=== PATIENT | female | born 1975 | race Caucasian/White ===

== ENCOUNTER 2016-11-02 17:59 | Emergency (ER) | payer OTHER ==
[~2016-11-02] VITALS: Ht 175.3 cm; Wt 121.6 kg
[~2016-11-02 17:59] MED LIST: ADDERALL XR 3030 MG PO; ADDERALL30 MG PO; BACTRIM,SEPT1 TABLET PO; ELIQUIS5 MG PO; LISINOPRIL10 MG PO; LISINOPRIL20 MG PO; METHADONE1 MG/1 ML PO; NAPROSYN500 MG PO; NORCO 5/3251 TABLET PO; PERCOCET 5/31 TABLET PO; PRADAXA150 MG PO; ROXICODONE5 MG PO; SEROQUEL XR200 MG PO; SEROQUEL200 MG PO; XARELTO20 MG PO
[2016-11-02 18:50] LABS: HEMATOCRIT 46.3 % (36.0-46.0); MCH 30.3 PG (29.0-34.0); MCHC 32.2 G/DL (30.0-36.0); MCV 94.3 FL (83-99); MEAN PLAT.VOLUME 8.6 uM^3 (9.5-12.4); PLATELET COUNT 364 K/uL (156-360); RBC DIS.WIDTH-CV 18.4 % (11.8-14.6); RBC DIS.WIDTH-SD 62.8 % (39-53); RED BLOOD COUNT 4.91 M/uL (3.80-5.20); WHITE BLOOD COUNT 8.4 K/uL (4.1-10.2)
[2016-11-02 19:00] LABS: CHLORIDE 97 mEq/L (99-109); POTASSIUM 5.2 mEq/L (3.7-5.4); SODIUM 135 mEq/L (136-147)
[2016-11-02 19:02] LABS: GLUCOSE 99 mg/dL (70-99)
[2016-11-02 19:03] LABS: ANION GAP 9 MEQ/L (2-14)
[2016-11-02 19:04] LABS: TOTAL BILIRUBIN 0.7 mg/dL (0.0-1.0)
[2016-11-02 19:05] LABS: ALKALINE PHOSPHATASE 117 IU/L (3-129)
[2016-11-02 19:06] LABS: GFR ESTIMATE (CALCULATED) 48 mL/min/
[2016-11-02 19:07] LABS: UREA NITROGEN (BUN) 11 mg/dL (9-23)
[2016-11-02 19:14] LABS: QUANTITATIVE HCG < 4.0 MIU/ML
[2016-11-02 21:33] LABS: ADD MIUA? YES; BILIRUBIN NEGATIVE; BLOOD NEGATIVE; COLOR AMBER ((YELLOW)); GLUCOSE (STRIP) NEGATIVE; KETONES 5; LEUKOCYTES SMALL; NITRITE NEGATIVE; PROTEIN (STRIP) 30; SPECIFIC GRAVITY 1.021 (1.000-1.030)
[2016-11-02 21:45] LABS: BACTERIA RARE /HPF; EPITHELIAL CELLS 3+ /HPF; MUCUS TRACE /LPF; RED BLOOD CELLS 0-5 /HPF (0-5); UCUL ADDED? NO; WHITE BLOOD CELLS 0-5 /HPF (0-5)
[2016-11-02 21:46] LABS: CASTS NONE SEEN /LPF; CRYSTALS NONE SEEN
[2016-11-02 23:16] VITALS: BP 102/54
== END 2016-11-02 23:17 | disposition home or self-care (01) ==
LOC: EME 17:59
DX: K43.2 Incisional hernia without obstruction or gangrene (principal); K43.9 Ventral hernia without obstruction or gangrene; R10.9 Unspecified abdominal pain; I10 Essential (primary) hypertension; Z86.718 Personal history of other venous thrombosis and embolism; Z79.891 Long term (current) use of opiate analgesic; F17.200 Nicotine dependence, unspecified, uncomplicated
CPT/HCPCS: 74177; 80053; 81003; 84702; 85027; 99281; 99284; J2270; J2405; J7030

== ENCOUNTER 2017-08-25 11:32 | Emergency (ER) | payer OTHER ==
[~2017-08-25] VITALS: Ht 175.3 cm; Wt 95.1 kg
[2017-08-25] MEDS ORDERED: DIPHENOXYLATE/1 EACH PO (12:13)
[2017-08-25] MEDS ORDERED: MYCOSTATIN15 GM PO (12:13)
[2017-08-25] MEDS ORDERED: WELLBUTRIN SR150 MG PO (12:14)
[2017-08-25] MEDS ORDERED: SOMA350 MG PO (12:14)
[2017-08-25] MEDS ORDERED: KENALOG,ARISTOC15 G2 TP (12:15)
[2017-08-25 12:57] LABS: BASOPHIL (%) 0.2 % (0-1); EOSINOPHIL (%) 0.8 % (0-5); EOSINOPHIL COUNT 0.1 K/uL (0-0.3); HEMATOCRIT 22.6 % (36.0-46.0); HEMOGLOBIN 7.3 G/DL (11.9-15.5); IMMATURE GRANULOCYTE (%) 0.4 % (0.0-0.7); LYMPHOCYTE (%) 38.8 % (15-42); LYMPHOCYTE COUNT 5.8 K/uL (1.0-2.8); MCH 26.6 PG (29.0-34.0); MCHC 32.3 G/DL (30.0-36.0); MCV 82.5 FL (83-99); MONOCYTE (%) 9.2 % (3-12); MONOCYTE COUNT 1.4 K/uL (0-0.8); NEUTROPHIL (%) 50.6 % (45-76); NEUTROPHIL COUNT 7.6 K/uL (1.8-6.4); NRBC (%) 0.7 /100 WBC (0-0); RBC DIS.WIDTH-CV 18.3 % (11.8-14.6); RBC DIS.WIDTH-SD 54.1 % (39-53); RED BLOOD COUNT 2.74 M/uL (3.80-5.20); WHITE BLOOD COUNT 14.9 K/uL (4.1-10.2)
[2017-08-25 13:00] LABS: PLATELET COUNT 743 K/uL (156-360)
[2017-08-25 13:06] LABS: INTER. NORMALIZED RATIO 1.3
[2017-08-25 13:17] LABS: ALBUMIN 2.8 g/dL (3.2-4.8); CHLORIDE 102 mEq/L (99-109); POTASSIUM 4.5 mEq/L (3.7-5.4); SODIUM 134 mEq/L (136-147)
[2017-08-25 13:19] LABS: GLUCOSE 108 mg/dL (70-99); TOTAL PROTEIN 8.2 g/dL (6.4-8.3)
[2017-08-25 13:21] LABS: TOTAL BILIRUBIN 0.5 mg/dL (0.0-1.0)
[2017-08-25 13:23] LABS: ALKALINE PHOSPHATASE 420 IU/L (3-129); GFR ESTIMATE (CALCULATED) > 59 mL/min/
[2017-08-25 13:24] LABS: UREA NITROGEN (BUN) 12 mg/dL (9-23)
[2017-08-25 13:25] LABS: AST (GOT) 18 IU/L (2-34)
[2017-08-25 13:26] LABS: ALT (GPT) 20 IU/L (3-49)
[2017-08-25 13:30] LABS: PTT 16.6 SEC (25-37)
[2017-08-25 15:58] VITALS: BP 97/70
== END 2017-08-25 16:24 | disposition home or self-care (01) ==
LOC: EME 11:32
PROVIDERS: Emergency Medicine
DX: K94.09 Other complications of colostomy (principal); I10 Essential (primary) hypertension; F41.9 Anxiety disorder, unspecified; Z86.718 Personal history of other venous thrombosis and embolism; F17.200 Nicotine dependence, unspecified, uncomplicated; Z88.0 Allergy status to penicillin; Z88.5 Allergy status to narcotic agent; Z88.6 Allergy status to analgesic agent
CPT/HCPCS: 74022; 80053; 83605; 85025; 85610; 85730; 87040; 87077; 87186; 87801; 99281; 99285

== ENCOUNTER 2018-02-18 13:13 | Emergency (ER) | payer OTHER ==
[~2018-02-18] VITALS: Ht 175.3 cm; Wt 107.7 kg
[~2018-02-18 13:13] MED LIST changes: +DIPHENOXYLATE/1 EACH PO; +KENALOG,ARISTOC15 G2 TP; +MYCOSTATIN15 GM PO; +SOMA350 MG PO; +WELLBUTRIN SR150 MG PO
[2018-02-18 13:59] LABS: HEMATOCRIT 24.5 % (36.0-46.0); HEMOGLOBIN 7.4 G/DL (11.9-15.5); MCH 24.3 PG (29.0-34.0); MCHC 30.2 G/DL (30.0-36.0); MCV 80.6 FL (83-99); NRBC (%) 1.7 /100 WBC (0-0); PLATELET COUNT 482 K/uL (156-360); RBC DIS.WIDTH-CV 18.7 % (11.8-14.6); RBC DIS.WIDTH-SD 54.3 % (39-53); RED BLOOD COUNT 3.04 M/uL (3.80-5.20); WHITE BLOOD COUNT 7.1 K/uL (4.1-10.2)
[2018-02-18 14:05] LABS: INTER. NORMALIZED RATIO 1.2
[2018-02-18 14:08] LABS: PTT 29.4 SEC (25-37)
[2018-02-18 14:09] LABS: CHLORIDE 100 mEq/L (99-109)
[2018-02-18 14:10] LABS: POTASSIUM 3.7 mEq/L (3.7-5.4); SODIUM 139 mEq/L (136-147)
[2018-02-18 14:11] LABS: GLUCOSE 81 mg/dL (70-99)
[2018-02-18 14:15] LABS: GFR ESTIMATE (CALCULATED) > 59 mL/min/
[2018-02-18 14:16] LABS: UREA NITROGEN (BUN) 16 mg/dL (9-23)
[2018-02-18] MEDS ORDERED: ELIQUIS5 MG PO (16:52)
[2018-02-18 16:56] VITALS: BP 157/83
== END 2018-02-18 16:57 | disposition home or self-care (01) ==
LOC: EME 13:13
PROVIDERS: Nurse Practitioner Family
DX: I82.422 Acute embolism and thrombosis of left iliac vein (principal); I82.442 Acute embolism and thrombosis of left tibial vein; I82.492 Acute embolism and thrombosis of other specified deep vein of left lower extremity; I82.512 Chronic embolism and thrombosis of left femoral vein; I82.532 Chronic embolism and thrombosis of left popliteal vein; Z79.01 Long term (current) use of anticoagulants; Z95.828 Presence of other vascular implants and grafts; I10 Essential (primary) hypertension; G43.909 Migraine, unspecified, not intractable, without status migrainosus; F41.9 Anxiety disorder, unspecified; F31.9 Bipolar disorder, unspecified; F17.200 Nicotine dependence, unspecified, uncomplicated; Z88.0 Allergy status to penicillin; Z88.5 Allergy status to narcotic agent; Z88.6 Allergy status to analgesic agent; Z88.8 Allergy status to other drugs, medicaments and biological substances
CPT/HCPCS: 80048; 85027; 85610; 85730; 93971; 99281; 99283

== ENCOUNTER 2018-04-08 12:22 | Emergency (ER) | payer OTHER ==
[~2018-04-08] VITALS: Ht 175.3 cm; Wt 94.8 kg
[2018-04-08] MEDS ORDERED: MOTRIN800 MG PO (13:29)
[2018-04-08 13:57] VITALS: BP 155/75
== END 2018-04-08 13:58 | disposition home or self-care (01) ==
LOC: EME 12:22
DX: S40.011A Contusion of right shoulder, initial encounter (principal); W22.8XXA Striking against or struck by other objects, initial encounter; Y92.007 Garden or yard of unspecified non-institutional (private) residence as the place of occurrence of the external cause; Z88.0 Allergy status to penicillin; Z88.5 Allergy status to narcotic agent; Z88.6 Allergy status to analgesic agent
CPT/HCPCS: 73030; 99281; 99282